=== PATIENT | male | born 1995 | race American Indian/Alaskan Native ===

== ENCOUNTER 2019-02-18 18:20 | Emergency (ER) | payer SELFPAY ==
--- NOTE | 2019-02-18 18:35 | Emergency Department Report ---
Blank Doc - Documentation Documentation: 24-year-old male that presents with right sided headache after being hit by a car door. Stated was 6 days ago but is getting worse. This initial assessment/diagnostic orders/clinical plan/treatment(s) is/are subject to change based on patient's health status, clinical progression and re- assessment by fellow clinical providers in the ED. Further treatment and workup at subsequent clinical providers discretion. Patient/guardians urged not to elope from the ED as their condition may be serious if not clinically assessed and managed. Initial orders include: 1- Patient sent to [facility] for further evaluation and treatment 2- cT head
--- NOTE | 2019-02-18 20:40 | Cat Scan Report ---
CT head/brain wo con INDICATION / CLINICAL INFORMATION: 24 years Male; headache. TECHNIQUE: Routine CT head without contrast. All CT scans at this location are performed using CT dos e reduction for ALARA by means of automated exposure control. COMPARISON: None. FINDINGS: BRAIN / INTRACRANIAL CONTENTS: No acute hemorrhage, mass effect, midline shift, hydrocephalus, or acu te, large territorial infarct. No chronic infarct or focal atrophy. Normal brain volume and ventricul ar/sulcal size for age. No significant white matter abnormality. CRANIOCERVICAL JUNCTION: No significant abnormality. ORBITS: No significant abnormality of visualized orbits. SINUSES / MASTOIDS: No significant abnormality of the visualized paranasal sinuses or mastoid air gurmeet ls. ADDITIONAL FINDINGS: None. IMPRESSION: Normal nonenhanced CT scan of the brain. Signer Name: Michael Diaz MD Signed: 02/18/2019 8:36 PM Workstation Name: [id number]
[2019-02-18] MEDS ORDERED: IBUPROFEN PO ONE (21:29)
--- NOTE | 2019-02-18 22:05 | Emergency Department Report ---
ED Headache HPI - General Chief Complaint: Headache Stated Complaint: HEADACHES Time Seen by Provider: 02/18/19 18:34 Source: patient Exam Limitations: no limitations - History of Present Illness Initial Comments: 24 yo male with no past medical or surgical history presents to hospital complaining of continued right sided head pain since striking his head on the rim of a car door opening 6 days ago. He states she was getting out of a car and he struck the right side of his head. He had localize swelling that has since improved. He continues to have constant 7/10 aching pain to his right temporal area. Patient has pain with palpation and with opening and closing of jaw. No significant blurred vision, nausea, vomiting, excessive drowsiness, focal weakness, or focal numbness. Does not take any blood thinners are anticoagulant medication. Allergies/Adverse Reactions: Allergies No Known Allergies Allergy (Unverified 02/18/19 18:36) Home Medications: Ambulatory Orders Ibuprofen [Motrin] 800 mg PO Q8HR PRN #30 tablet 02/18/19 ED Review of Systems ROS: Stated complaint: HEADACHES Other details as noted in HPI Comment: All other systems reviewed and negative ED Past Medical Hx - Past Medical History Previous Medical History?: No - Surgical History Past Surgical History?: No - Social History Smoking Status: Current Every Day Smoker Substance Use Type: Marijuana - Medications Home Medications: Home Medications Medication Instructions Recorded Confirmed Last Taken Type Ibuprofen [Motrin] 800 mg PO Q8HR PRN #30 tablet 02/18/19 Unknown Rx ED Physical Exam - General Limitations: No Limitations - Other Other exam information: Gen.: No acute distress Head: right side temporal side of scalp tenderness to palpation without hematoma. Eyes: Normal appearance, EOMI, ANIL ENT: Moist mucous membranes Neck: Normal appearance, no posterior midline tenderness, no meningismus Chest: Clear to auscultation bilaterally Cardiovascular: Regular rate and rhythm Abdomen: Normal appearance, soft, nontender, no rebound or guarding, normal bowel sounds Back: Normal appearance, nontender Extremity: Full range of motion, normal appearance Neuro: Alert O x 3, clear speech, no focal motor or sensory deficit Psychiatric: Appropriate Skin: No rash ED Course Vital Signs 02/18/19 02/18/19 18:23 21:44 Temperature 98.0 F Pulse Rate 60 Respiratory 16 18 Rate Blood Pressure 121/80 O2 Sat by Pulse 98 Oximetry ED Medical Decision Making - Medical Decision Making minor head injury no loc no neuro findings injury [address] not indicated motrin for pain d/c home - Differential Diagnosis contusion, minor head injury, concussion Critical Care Time: No Critical care attestation.: If time is entered above; I have spent that time in minutes in the direct care of this critically ill patient, excluding procedure time. ED Disposition Clinical Impression: Headache, Minor head injury, Scalp contusion Disposition: - TO HOME OR SELFCARE Is pt being admited?: No Condition: Stable Instructions: Acute Headache (ED), Scalp Contusion in Adults (ED) Additional Instructions: Take the medication as prescribed. Follow-up with your doctor or with the doctor/clinic provided. Return if symptoms worsen as indicated by your discharge instructions. Prescriptions: Ibuprofen [Motrin] 800 mg PO Q8HR PRN #30 tablet PRN Reason: Pain , Severe (7-10) Referrals: [facility] [Provider Group] - 3-5 Days Time of Disposition: 22:05
[2019-02-18 23:11] VITALS: BP 110/70
== END 2019-02-18 22:30 | disposition home or self-care (01) ==
LOC: ED 18:20
DX: S00.03XA Contusion of scalp, initial encounter (principal); F17.200 Nicotine dependence, unspecified, uncomplicated; W22.8XXA Striking against or struck by other objects, initial encounter; Y93.89 Activity, other specified; Y92.89 Other specified places as the place of occurrence of the external cause; Y99.8 Other external cause status
CPT/HCPCS: 70450